=== PATIENT | male | born 1990 | race Caucasian/White ===

== ENCOUNTER 2021-06-29 19:19 | Emergency (ER) | payer SELFPAY ==
--- OUTSIDE RECORDS SUMMARY | 2021-06-29 19:22 | XMS REPORT | Continuity of Care Document ---
:1990 Author Organization [facility] t Address [address] [place] [address] Care Team Providers Name Role Phone Nguyen_Tho Attending Clinician Unavailable AMBREEN_FARHANA Attending Clinician Unavailable cain_jo Attending Clinician Unavailable Nguyen_Tho Admitting Clinician Unavailable AMBREEN_FARHANA Admitting Clinician Unavailable cain_jo Admitting Clinician Unavailable Payers Payer Name Policy Type Policy Number Effective Date Expiration Date Dany ESPINOZA [facility] [id number] [facility] Problems Condition Condition Condition Status Onset Resolution Last Treating Co mments Source Name Details Category Date Date Treatment Clinician Date Recurrent Recurrent Problem Active [place] major 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-12 da depression Depression 00:00: [facility] 00 al [facility] Generalize Generalize Problem Active [place] d anxiety d Anxiety 12-12 da disorder Disorder 00:00: Ep[facility] p 00 al [facility] Attention Attention Problem Active [place] deficit 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 Hyperactiv 00:00: Ep [facility] ity ity 00 al disorder Disorder Health Outreac h Program Smoker Smoker Problem Active [place] [facility] Upper Upper Problem Active [place] respirator Respirator da y y [facility] infection Infection al [facility] Acute Acute Problem Active [place] bronchitis Bronchitis da [facility] Bronchitis Bronchitis Problem Active [facility] [place] [facility] Toothache Toothache Problem Active [place] [facility] Folliculit Folliculit Problem Active M [facility] is is da [facility] Malaise Malaise Problem Active [place] [facility] Swollen Swollen Problem Active [place] gums Gums da [facility] Dyspnea Dyspnea Problem Active [place] [facility] Cough Cough Problem Active [place] [facility] Chest wall Chest Wall Problem Active M [facility] pain Pain [facility] Sprain of Sprain of Problem Active [place] ankle Ankle [facility] Knee pain Knee Pain Problem Active [place] [facility] On On Problem Active [place] examinatio Examinatio da n - dental n - Dental [facility] caries Caries al Health Outreac h Program Allergies, Adverse Reactions, Alerts This patient has no known allergies or adverse reactions. Social History Smoking Status Start Date Stop Date Source Former Smoker [place] [facility] Medications Ordered Filled Start Stop Current Ordering Indication Dosage Frequency Signature Comments Components Source Medication Medication Date Date Medication? Clinician (SIG) Name Name albuterol albuterol No 2puff(s Q4H albuterol [place] sulfate HFA sulfate HFA ) sulfate da 90 90 HFA 90 [facility] mcg/actuati mcg/actuati mcg/actuat al on aerosol on aerosol ion Hea lth inhaler inhaler aerosol Outrea c Inhale 2 Inhale 2 inhaler h puffs every puffs every Inhale 2 Program 4 hours by 4 hours by puffs inhalation inhalation every 4 route as route as hours by needed. needed. inhalation route as needed. clonazepam clonazepam No clonazepam [place] 1 mg tablet 1 mg tablet 1 mg d a TAKE 1 TAKE 1 tablet [facility] TABLET BY TABLET BY TAKE 1 al MOUTH TWICE MOUTH TWICE TABLET BY [facility] DAILY DAILY MOUTH Outrea c NEEDED NEEDED TWICE h DAILY Program NEEDED ipratropium ipratropium No ipratropiu [place] 0.5 0.5 m 0.5 da mg-albutero mg-albutero mg-albuter [facility] l 3 mg (2.5 l 3 mg (2.5 ol 3 mg al mg base)/3 mg base)/3 (2.5 mg Health mL mL base)/3 mL Outreac nebulizatio nebulizatio nebulizati h n soln Take n soln Take on soln Program 3 mL by 3 mL by Take 3 mL inhalation inhalation by with with inhalation NEBulizer NEBulizer with every 20 every 20 NEBulizer minutes up minutes up every 20 to three to three minutes up times. times. to three times. sertraline sertraline No sertraline [place] 50 mg 50 mg 50 mg da tablet tablet tablet [facility] Immunizations Ordered Immunization Filled Immunization Date Status Commen ts Source Name Name Tdap Tdap 2017-03-21 Completed [place] 00:00:00 [facility] Vital Signs Vital Name Observation Time Observation Value Comments Source BP Diastolic 2021-06-09 00:00:00 76 mm[Hg] Riaz kofi [facility] Height 2021-06-09 00:00:00 72 [in_i] [facility] BMI (Body Mass 2021-06-09 00:00:00 27 kg/m2 [place]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) [facility] Outreach Program BP Systolic 2021-06-09 00:00:00 118 mm[Hg] Riazrd a [facility] Body Weight 2021-06-09 00:00:00 3184 [oz_av] Riazrd a [facility] BP Diastolic 2021-04-28 00:00:00 78 mm[Hg] Riazrd a [facility] Height 2021-04-28 00:00:00 72 [in_i] Riazrd a [facility] BMI (Body Mass 2021-04-28 00:00:00 26.6 kg/m2 [place]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) [facility] BP Systolic 2021-04-28 00:00:00 120 mm[Hg] Riazrd a [facility] Body Weight 2021-04-28 00:00:00 3136 [oz_av] Riazrd a [facility] BP Diastolic 2020-11-07 00:00:00 84 mm[Hg] Riazrd a [facility] Height 2020-11-07 00:00:00 72 [in_i] Riazrd a [facility] BMI (Body Mass 2020-11-07 00:00:00 26.4 kg/m2 [place]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) [facility] BP Systolic 2020-11-07 00:00:00 128 mm[Hg] Riazrd a [facility] Body Weight 2020-11-07 00:00:00 3120 [oz_av] Riazrd a [facility] BP Diastolic 2020-10-06 00:00:00 74 mm[Hg] Riazrd a [facility] Height 2020-10-06 00:00:00 72 [in_i] Riazrd a [facility] BMI (Body Mass 2020-10-06 00:00:00 26.3 kg/m2 [place]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 BP Systolic 2020-10-06 00:00:00 113 mm[Hg] Riazrd a [facility] Body Weight 2020-10-06 00:00:00 3104 [oz_av] Riazrd a [facility] BP Diastolic 2020-08-25 00:00:00 82 mm[Hg] [place] [facility] Height 2020-08-25 00:00:00 72 [in_i] [place] [facility] BMI (Body Mass 2020-08-25 00:00:00 25.5 kg/m2 [place]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) [facility] BP Systolic 2020-08-25 00:00:00 122 mm[Hg] Riazrd a [facility] Body Weight 2020-08-25 00:00:00 3008 [oz_av] Riazrd a [facility] Height 2020-08-15 00:00:00 72 [in_i] Luis Fagord a [facility] BP Systolic 2020-08-15 00:00:00 126 mm[Hg] [place] [facility] BP Diastolic 2020-08-15 00:00:00 72 mm[Hg] [place] [facility] BP Diastolic 2019-11-30 00:00:00 93 mm[Hg] Riazrd a [facility] Height 2019-11-30 00:00:00 72 [in_i] Riazrd a [facility] BMI (Body Mass 2019-11-30 00:00:00 26.3 kg/m2 [place]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) [facility] BP Systolic 2019-11-30 00:00:00 125 mm[Hg] Luis Fagord a [facility] Body Weight 2019-11-30 00:00:00 3097.6 [oz_av] [place]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[facility] BP Diastolic 2019-11-02 00:00:00 78 mm[Hg] Riazrd a [facility] Height 2019-11-02 00:00:00 72 [in_i] Luis Fagord a [facility] BMI (Body Mass 2019-11-02 00:00:00 25.2 kg/m2 [place]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) [facility] Outreach Program BP Systolic 2019-11-02 00:00:00 129 mm[Hg] [place] [facility] Body Weight 2019-11-02 00:00:00 2976 [oz_av] Luis Fagord a [facility] BP Diastolic 2019-09-28 00:00:00 74 mm[Hg] [place] [facility] Height 2019-09-28 00:00:00 72 [in_i] [place] [facility] BMI (Body Mass 2019-09-28 00:00:00 24.3 kg/m2 [place]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) [facility] Outreach Program BP Systolic 2019-09-28 00:00:00 120 mm[Hg] Luis Fagord a [facility] Body Weight 2019-09-28 00:00:00 2870.4 [oz_av] Luis Fago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[facility] Procedures Procedure Date / Time Performed Performing Clinician Sour e ELECTROCARDIOGRAM, 2021-06-09 00:00:00 Chika [facility] COMPLETE [facility] Out[facility] CHEST X-RAY 2021-04-28 00:00:00 Chika [facility] XR, ankle, 3 or more 2019-11-02 00:00:00 Shana sloan [facility] Plan of Care Planned Activity Planned Date Details Comments Source Diagnostic Test 2021-06-09 CBC w/ auto diff [code [place] Pending 00:00:00 = CBC w/ auto diff] [facility] Diagnostic Test 2021-06-09 CMP, serum or plasma [place] corin Pending 00:00:00 [code = CMP, serum or [facility] plasma] Outreach Progra m Diagnostic Test 2021-06-09 magnesium, serum or [place] Pending 00:00:00 plasma [code = [facility] magnesium, serum or Outreach Program plasma] Diagnostic Test 2021-06-09 CRP, high sensitivity, [place] Pending 00:00:00 serum or plasma [code [facility] = CRP, high Outreach Progra m sensitivity, serum or plasma] Diagnostic Test 2021-06-09 ESR (erythrocyte [place] Pending 00:00:00 sedimentation rate), [facility] blood [code = ESR Outreach P rogram (erythrocyte sedimentation rate), blood] Diagnostic Test 2021-06-09 lipid panel, serum [place]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Pending 00:00:00 [code = lipid panel, [facility] serum] Outreach Progra m Diagnostic Test 2021-06-09 amylase + lipase, [place] Pending 00:00:00 serum [code = amylase [facility] + lipase, serum] Outreach Pr ogram Future Appointment 2021-07-22 Thchrissy Louie [address] , [place] [address] Outreach Program Future Appointment 2021-07-13 Artem Winter, [address] [place] 13:00:00 [place]; , [facility] [address] Outreach Progra m Encounters Start End Encounter Admission Attending Care Care Encounter Source Date/Time Date/Time Type Type Clinicians Facility Department ID 2021-06-09 2021-06-09 Outpatient Nguyen_Tho [facility] [id number] [place] 05:40:00 05:40:00 0322 [facility] 2021-06-09 2021-06-09 [facility] [id number] [place] 00:00:00 00:00:00 Chika Louie da DEPOSIT REFUND CLERK-TECHNICAL PRODUCER-C: [facility] [address] [facility] [address], [facility] [address] Wiley garcia , Ph. 2021-06-08 2021-06-08 Outpatient Nguyen_o [facility] [id number] [place] 03:57:00 03:57:00 0321 [facility] 2021-05-28 2021-05-28 Outpatient Nguyen_Tho [facility] [id number] [place] 04:06:00 04:06:00 0310 [facility] 2021-05-13 2021-05-13 Outpatient Nguyen_Tho [facility] [id number] [place] 10:07:00 10:07:00 0223 [facility] 2021-04-28 2021-04-28 Outpatient Nguyen_o [facility] [id number] [place] 05:34:00 05:34:00 0208 [facility] 2021-04-28 2021-04-28 o [facility] [place] - [id number] [place] 00:00:00 00:00:00 Chika Louie da DEPOSIT REFUND CLERK-TECHNICAL PRODUCER-C: [facility] [address] HOP - [facility] [phone] [facility] , Ph. 2021-04-27 2021-04-27 Outpatient Nguyen_Tho [facility] [id number] [place] 04:36:00 04:36:00 0207 [facility] 2020-12-04 2020-12-04 Outpatient Nguyen_Tho [facility] [id number] [place] 02:08:00 02:08:00 0916 [facility] 2020-11-07 2020-11-07 Outpatient Nguyen_Tho [facility] [id number] [place] 11:45:00 11:45:00 0820 [facility] 2020-11-07 2020-11-07 o [facility] [place] - [id number] [place]or 00:00:00 00:00:00 Chika Louie da DEPOSIT REFUND CLERK-TECHNICAL PRODUCER-C: [facility] [address] - [facility] [phone] Wiley , Ph. 2020-11-06 2020-11-06 Outpatient Nguyen_Tho [facility] [id number] [place] 01:14:00 01:14:00 0819 [facility] 2020-10-30 2020-10-30 Outpatient Nguyen_Tho [facility] [id number] [place] 01:21:00 01:21:00 0812 [facility] 2020-10-07 2020-10-07 Outpatient Nguyen_Tho [facility] [id number] [place] 09:37:00 09:37:00 0720 [facility] 2020-10-06 2020-10-06 Outpatient NgalinenVannessa [facility] [id number] [place] 05:45:00 05:45:00 0719 [facility] 2020-10-06 2020-10-06 o [facility] [place] - [id number] M at[place] 00:00:00 00:00:00 Chika Louie da DEPOSIT REFUND CLERK-TECHNICAL PRODUCER-C: [facility] [address] - [facility] [address] Wiley garcia , Ph. 2020-09-25 2020-09-25 Outpatient NgGaye [facility] [id number] [place] 01:45:00 01:45:00 0708 [facility] 2020-08-27 2020-08-27 Outpatient Nguyen_Duncano [facility] [id number] [place] 09:58:00 09:58:00 0609 [facility] 2020-08-25 2020-08-25 Outpatient Nguyen_Shaun [facility] [id number] [place] 05:35:00 05:35:00 0607 [facility] 2020-08-25 2020-08-25 [facility] [place] - [id number] M at[place]or 00:00:00 00:00:00 Chika Louie da DEPOSIT REFUND CLERK-TECHNICAL PRODUCER-C: [facility] [address] [facility] [address] Wiley garcia , Ph. 2020-08-22 2020-08-22 Outpatient Nguyen_Duncano [facility] [id number] [place] 01:02:00 01:02:00 0604 [facility] 2020-08-19 2020-08-19 Outpatient Florenceen_Shaun [facility] [id number] [place] 09:18:00 09:18:00 0601 [facility] 2020-08-15 2020-08-15 Outpatient Jacy_Shaun [facility] [id number] [place] 04:28:00 04:28:00 0528 [facility] 2020-08-15 2020-08-15 [facility] [place] - [id number] atagor 00:00:00 00:00:00 Chika Louie da DEPOSIT REFUND CLERK-TECHNICAL PRODUCER-C: [facility] [address] [facility] [address] Wiley am , Ph. 2020-08-13 2020-08-13 Outpatient Jacy_Shaun [facility] [id number] [place] 09:57:00 09:57:00 0526 [facility] 2020-08-07 2020-08-07 Outpatient AMBREEN_FAR [facility] 834 [place] 02:29:00 02:29:00 HANA 0520 [facility] 2020-08-07 2020-08-07 [facility] [place] - [id number] [place]agor 00:00:00 00:00:00 Chika Louie da DEPOSIT REFUND CLERK-TECHNICAL PRODUCER-C: [facility] [address] [facility] [address] Progr am , Ph. 2020-07-14 2020-07-14 Outpatient AMBREEN_FAR [facility] [id number] [place] 01:03:00 01:03:00 HANA 0426 [facility] 2020-06-09 2020-06-09 Outpatient AMBREEN_FAR [facility] 834 [place] 01:01:00 01:01:00 HANA 0322 [facility] 2020-05-05 2020-05-05 Outpatient AMBREEN_FAR [facility] 834 [place] 01:02:00 01:02:00 HANA 0215 [facility] 2020-04-28 2020-04-28 Outpatient AMBREEN_FAR [facility] 834 [place] 03:53:00 03:53:00 HANA 0208 [facility] 2020-04-25 2020-04-25 Outpatient AMBREEN_FAR [facility] 834 [place] 03:44:00 03:44:00 HANA 0205 [facility] 2020-03-31 2020-03-31 Outpatient AMBREEN_FAR [facility] 834 [place] 01:04:00 01:04:00 HANA 0111 [facility] 2020-02-25 2020-02-25 Outpatient AMBREEN_FAR [facility] 834 [place] 01:03:00 01:03:00 HANA 1207 [facility] 2020-02-18 2020-02-18 Outpatient AMBREEN_FAR [facility] 834 [place] 11:22:00 11:22:00 HANA 1130 [facility] 2020-02-18 2020-02-18 [facility] [place] - [id number] M at[place] 00:00:00 00:00:00 Matt Weir MD: [facility] [address] [facility] B.[facility] [address] [facility] jose , Ph. [phone] 2020-02-06 Outpatient katy_matt [facility] [id number] [place] 02:32:00 02:32:00 1118 [facility] 2020-01-19 2020-01-19 Outpatient AMBREEN_FAR [facility] 834 [place] 01:03:00 01:03:00 HANA 1031 [facility] 2020-01-18 2020-01-18 Outpatient AMBREEN_FAR [facility] 834 [place] 03:44:00 03:44:00 HANA 1030 [facility] 2019-12-19 2019-12-19 Outpatient AMBREEN_FAR [facility] 834 [place] 03:16:00 03:16:00 HANA 0930 [facility] 2019-12-19 2019-12-19 Artem Conley [place] - [id number] M [place] 00:00:00 00:00:00 Chika Soni da PSYD: 1700 [facility] [address] [facility] [id number] h , Ph. Program [phone] --[phone] 2019-12-14 Outpatient AMBREEN_FAR [facility] 834 [place] 11:02:00 11:02:00 HANA 0925 [facility] 2019-12-13 2019-12-13 Outpatient AMBREEN_FAR [facility] 834 [place] 04:22:00 04:22:00 HANA 0924 [facility] 2019-12-13 2019-12-13 Artem Conley [place] - [id number] M [place] 00:00:00 00:00:00 Chika Soni PSYD: 1700 [facility] [address] h , Ph. Program ([phone]) --[phone] 2019-11-30 Outpatient AMBREEN_FAR [facility] 834 [place] 04:09:00 04:09:00 HANA 0911 [facility] 2019-11-30 2019-11-30 Latrice ROQUE [place] - [id number] M at[place] 00:00:00 00:00:00 Isabel Escudero, [facility] TECHNICAL PRODUCER: [address] [facility] [address] Progr am , Ph. 2019-11-02 2019-11-02 Outpatient AMBREEN_FAR [facility]HOP [facility] 834 [place] 02:40:00 02:40:00 HANA 0814 [facility] 2019-11-02 2019-11-02 Latrice ROQUE [place] - [id number] M [place] 00:00:00 00:00:00 Isabel Escudero, [facility] TECHNICAL PRODUCER: [address] [facility] [address] Progr am , Ph. 2019-10-31 2019-10-31 Outpatient AMBREEN_FAR [facility] 834 [place] 10:29:00 10:29:00 HANA 0812 [facility] 2019-10-09 2019-10-09 Outpatient AMBREEN_FAR [facility] 834 [place] 01:45:00 01:45:00 HANA 0721 [facility] 2019-10-04 2019-10-04 Outpatient AMBREEN_FAR [facility] 834 [place] 01:13:00 01:13:00 HANA 0716 [facility] 2019-09-28 2019-09-28 Outpatient AMBREEN_FAR [facility] 834 [place] 09:09:00 09:09:00 HANA 0710 [facility] 2019-09-28 2019-09-28 Latrice ROQUE [place] - [id number] M at[place] 00:00:00 00:00:00 Isabel Escudero, [facility] TECHNICAL PRODUCER: [address] [facility] [address] Progr am , Ph. 2019-09-26 2019-09-26 Outpatient AMBREEN_FAR [facility] 834 [place] 06:37:00 06:37:00 NICOLÁS 0708 [facility] Outreac h Program 2019-08-30 2019-08-30 Outpatient AMBREEN_[facility] 834 [place] 03:40:00 03:40:00 GODWINA 0611 [facility] Outreac h Program Results Test Description Test Time Test Comments Results Result Comments Source influenza virus A + B and SARS CoV 2 (COVID-19) and RSV RNA 2020-11-07 14:36:00 panel, NESS+probe, respiratory specimen Test Item Value Reference Range Interpretation Comme nts Sars Cov 2 (test code = Sars Cov 2) negative [facility] [Mass/volume] - Serum or [id number] 00:00:00 Test Item Value Reference Range Interpretation Comments Testosterone [Mass/volume] in 674 NG/dL [id number] Serum or Plasma (test code = 2986-8) Testosterone Free [Mass/volume] in 17.3 pg/mL 8.7-25.1 Serum or Plasma (test code = 2991-8) [facility]
--- NOTE | 2021-06-29 20:44 | ER ---
Nurse's Notes [facility] Name: Ham Chavez Age: 30 yrs Sex: Male : 1990 Arrival Date: 06/29/2021 Time: 19:48 Bed Waiting Private MD: Diagnosis: ED Course: 06/29 19:48 Patient arrived in ED. ag3 Administered Medications: No medications were administered Outcome: 20:43 Patient left the ED. ll3 Signatures: Mechelle Nunez3 Liya Oneill, RN RN 3
== END 2021-06-29 20:43 | disposition left against medical advice (07) ==
LOC: ER 19:19
DX: Z02.9 Encounter for administrative examinations, unspecified (principal)

== ENCOUNTER 2022-03-10 13:08 | Emergency (ER) | payer SELFPAY ==
--- OUTSIDE RECORDS SUMMARY | 2022-03-10 13:12 | XMS REPORT | Continuity of Care Document ---
:1990 Author Organization [facility] t Address [address] [place] [address] Care Team Providers Name Role Phone Nguyen_Tho Attending Clinician Unavailable AMBREEN_FARHANA Attending Clinician Unavailable [email or web address] Attending Clinician Unavailable Nguyen_Tho Admitting Clinician Unavailable AMBREEN_FARHANA Admitting Clinician Unavailable [email or web address] Admitting Clinician Unavailable Payers Payer Name Policy Type Policy Number Effective Date Expiration Date Dany STRINGER [id number] INCRenny Problems Condition Condition Condition Status Onset Resolution [...] Start Date Stop Date Source Former Smoker [place] [facility] Medications Ordered [...] al MOUTH TWICE MOUTH TWICE TABLET BY Health DAILY DAILY MOUTH Outrea c NEEDED NEEDED [...] Source Name Name Tdap Tdap 2017-03-21 Completed [place] 00:00:00 [facility] Outreach Progr am Vital Signs Vital Name Observation Time Observation Value Comments Source BP Diastolic 2021-06-09 00:00:00 76 mm[Hg] [facility] Height 2021-06-09 00:00:00 72 [in_i] [facility] BMI (Body Mass 2021-06-09 00:00:00 27 kg/m2 [place] [facility] Index) [facility] Out[facility] BP Systolic 2021-06-09 00:00:00 118 mm[Hg] [place] [facility] Body Weight 2021-06-09 00:00:00 3184 [oz_av] [place] [facility] BP Diastolic 2021-04-28 00:00:00 78 mm[Hg] [place] [facility] Height 2021-04-28 00:00:00 72 [in_i] [facility] [place] [facility] BMI (Body Mass 2021-04-28 00:00:00 26.6 kg/m2 [place] [facility] Index[facility] BP Systolic 2021-04-28 00:00:00 120 mm[Hg] [facility] [place] [facility] Body Weight 2021-04-28 00:00:00 3136 [oz_av] [facility] [place] [facility] BP Diastolic 2020-11-07 00:00:00 84 mm[Hg] [place] [facility] Height 2020-11-07 00:00:00 72 [in_i] [facility] [place] [facility] BMI (Body Mass 2020-11-07 00:00:00 26.4 kg/m2 [place] [facility] Index[facility] BP Systolic 2020-11-07 00:00:00 128 mm[Hg] [facility] [place] [facility] Body Weight 2020-11-07 00:00:00 3120 [oz_av] [place] [facility] BP Diastolic 2020-10-06 00:00:00 74 mm[Hg] [place] [facility] Height 2020-10-06 00:00:00 72 [in_i] [place] [facility] BMI (Body Mass 2020-10-06 00:00:00 26.3 kg/m2 [place] [facility] Index[facility] BP Systolic 2020-10-06 00:00:00 113 mm[Hg] [place] [facility] Body Weight 2020-10-06 00:00:00 3104 [oz_av] [place] [facility] BP Diastolic 2020-08-25 00:00:00 82 mm[Hg] [place] [facility] Height 2020-08-25 00:00:00 72 [in_i] [place] [facility] BMI (Body Mass 2020-08-25 00:00:00 25.5 kg/m2 [place] [facility] Index[facility] BP Systolic 2020-08-25 00:00:00 122 mm[Hg] [place] [facility] Body Weight 2020-08-25 00:00:00 3008 [oz_av] [facility] [place] [facility] Height 2020-08-15 00:00:00 72 [in_i] [place] [facility] BP Systolic 2020-08-15 00:00:00 126 mm[Hg] [place] [facility] BP Diastolic 2020-08-15 00:00:00 72 mm[Hg] [place] [facility] BP Diastolic 2019-11-30 00:00:00 93 mm[Hg] [place] [facility] Height 2019-11-30 00:00:00 72 [in_i] [place] [facility] BMI (Body Mass 2019-11-30 00:00:00 26.3 kg/m2 [place] [facility] Index) [facility] BP Systolic 2019-11-30 00:00:00 125 mm[Hg] [place] [facility] Body Weight 2019-11-30 00:00:00 3097.6 [oz_av] [place] [facility] BP Diastolic 2019-11-02 00:00:00 78 mm[Hg] [place] [facility] Height 2019-11-02 00:00:00 72 [in_i] [place] [facility] BMI (Body Mass 2019-11-02 00:00:00 25.2 kg/m2 [place] [facility] Index) [facility] BP Systolic 2019-11-02 00:00:00 129 mm[Hg] [place] [facility] Body Weight 2019-11-02 00:00:00 2976 [oz_av] [facility] BP Diastolic 2019-09-28 00:00:00 74 [facility]Hg[facility] Height 2019-09-28 00:00:00 72 [in_i] [facility] BMI (Body Mass 2019-09-28 00:00:00 24.3 kg/m2 [place] [facility] Index) [facility] Outreach [facility] BP Systolic 2019-09-28 00:00:00 120 mm[Hg] [facility] Body Weight 2019-09-28 00:00:00 2870.4 [oz_av] [facility] Procedures Procedure Date / Time Performed Performing Clinician Sour e ELECTROCARDIOGRAM, 2021-06-09 00:00:00 Chika [facility] COMPLETE [facility] Outreach Program CHEST X-RAY 2021-04-28 00:00:00 [facility]ika [facility] XR, ankle, 3 or more 2019-11-02 00:00:00 Shana sloan [facility] Plan of Care Planned Activity Planned Date Details Comments Source Diagnostic Test 2021-06-09 CBC w/ auto diff [code [place] Pending 00:00:00 = CBC w/ auto diff] [facility] Diagnostic Test 2021-06-09 CMP, serum or plasma [place] corin Pending 00:00:00 [code = CMP, serum or [facility] plasma] Outreach Progra m Diagnostic Test 2021-06-09 magnesium, serum or [place] Pending 00:00:00 plasma [code = [facility] magnesium, serum or Outreach Program plasma] Diagnostic Test 2021-06-09 CRP, high sensitivity, [place] Pending 00:00:00 serum or plasma [code [facility] = CRP, high Outreach Progra m sensitivity, serum or plasma] Diagnostic Test 2021-06-09 ESR (erythrocyte [place] Pending 00:00:00 sedimentation rate), [facility] blood [code = ESR Outreach P rogram (erythrocyte sedimentation rate), blood] Diagnostic Test 2021-06-09 lipid panel, serum [place] Pending 00:00:00 [code = lipid panel, [facility] serum] Outreach Progra m Diagnostic Test 2021-06-09 amylase + lipase, [place] Pending 00:00:00 serum [code = amylase [facility] + lipase, serum] Outreach Pr ogram Encounters Start End Encounter Admission Attending Care Care Encounter Source Date/Time Date/Time Type Type Clinicians Facility Department ID 2021-06-09 2021-06-09 [place] - [id number] [place] 00:00:00 00:00:00 Chika Louie 0322 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 [address] Wiley garcia , Ph. 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 [address] Wiley garcia , Ph. 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 [id number] Wiley garcia , Ph. 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 [phone] [facility] , Ph. 2020-08-22 2020-08-22 Outpatient Nguyen_Shaun ME[facility]OP [facility] [id number] [place] 01:02:00 01:02:00 0604 [facility] 2020-08-19 2020-08-19 Outpatient Nguyen_Shaun [facility] [id number] [place] 09:18:00 09:18:00 0601 [facility] 2020-08-15 2020-08-15 [place] [facility] [place] - [id number] 021 [place] 00:00:00 00:00:00 Chika Louie 0528 da SOLID WASTE ENGINEER-SUPERCALENDER OPERATOR HELPER-C: [facility] Epi scop 17[address] H[address] - [facility] [id number] [facility] , Ph. 2020-08-13 2020-08-13 Outpatient Nguyen_Shaun [facility] [id number] [place] 09:57:00 09:57:00 0526 [facility] 2020-08-07 2020-08-07 Tho [facility] [place] - [id number] [place] 00:00:00 00:00:00 NICOLÁS [place] 0520 da SOLID WASTE ENGINEER-SUPERCALENDER OPERATOR HELPER-C: [facility] Epi scop 1700 HOP - MEHOP al [facility] [id number] Wiley garcia , Ph. 2020-07-14 2020-07-14 Outpatient AMBREEN_FAR MEHOP ME[facility]OP [id number] [place] 01:03:00 01:03:00 HANA 0426 da [facility] 2020-06-09 2020-06-09 Outpatient AMBREEN_FAR MEHOP ME[facility]OP [id number] [place] 01:01:00 01:01:00 HANA 0322 da [facility] 2020-05-05 2020-05-05 Outpatient AMBREEN_FAR MEHOP ME[facility]OP [id number] [place] 01:02:00 01:02:00 HANA 0215 [facility] 2020-04-28 2020-04-28 Outpatient AMBREEN_FAR MEHOP [facility]OP [id number] [place] 03:53:00 03:53:00 HANA 0208 da [facility] 2020-04-25 2020-04-25 Outpatient AMBREEN_FAR MEHOP [facility]OP [id number] [place] 03:44:00 03:44:00 HANA 0205 da [facility] 2020-03-31 2020-03-31 Outpatient AMBREEN_FAR MEHOP [facility]OP [id number] [place] 01:04:00 01:04:00 HANA 0111 [facility] 2020-02-25 2020-02-25 Outpatient AMBREEN_FAR ME[facility]OP [facility] [id number] [place] 01:03:00 01:03:00 HANA 1207 da [facility] 2020-02-18 2020-02-18 Oswaldo AMBREEN_FAR [place] - [id number] [place] 00:00:00 00:00:00 Matt Farr 1130 edouard Weir MD: [facility] Epi scop 1700 HOP - [facility] [address] Wiley garcia , Ph. [phone] 2020-02-06 Outpatient caimarcel_matt [facility] [id number] [place] 02:32:00 02:32:00 1118 da [facility] 2020-01-19 2020-01-19 Outpatient AMBREEN_FAR MEHOP [facility]HOP [id number] [place] 01:03:00 01:03:00 HANA 1031 da [facility] 2020-01-18 2020-01-18 Outpatient AMBREEN_FAR MEHOP [facility] [id number] [place] 03:44:00 03:44:00 HANA 1030 da [facility] 2019-12-19 2019-12-19 Artem Jarvis AMBREEN_FAR [place] - [id number] [place] 00:00:00 00:00:00 NICOLÁS Soni [place] 0930 da PSYD: 1700 [facility] Epi scop Fritz HOP - [address], [facility] [address] h , Ph. Program ([phone]) --20072019-12-14 2019-12-14 Outpatient AMBREEN_FAR MEHOP MEHOP [id number] [place] 11:02:00 11:02:00 HANKofi 0925 da [facility] 2019-12-13 2019-12-13 Artem Conley AMBREEN_FAR [place] - [id number] [place] 00:00:00 00:00:00 NICOLÁS Soni [place] 0924 da PSYD: 1700 [facility] Epi scop Fritz HOP - [address], [facility] [address] h , Ph. Program ([phone]) --20072019-11-30 2019-11-30 Latrice AMBREEN_FAR [place] - [id number] [place] 00:00:00 00:00:00 Isabel MONZON [place] 0911 da Gerard, [facility] SUPERCALENDER OPERATOR HELPER: 1700 HOP - MEHOP al [facility] [address] [facility] , Ph. 2019-11-02 2019-11-02 [facility] [place] [facility] [id number] [place] 00:00:00 00:00:00 Cru[place]ofi [place] 0814 [place] [facility] SUPERCALENDER OPERATOR HELPER: 1700 [facility] [id number] [facility] , Ph. 2019-10-31 2019-10-31 Outpatient AMBREEN_FAR MEHOP [facility] [id number] [place] 10:29:00 10:29:00 HANA 0812 da [facility] 2019-10-09 2019-10-09 Outpatient AMBREEN_FAR MEHOP [facility] [id number] [place] 01:45:00 01:45:00 HANA 0721 da [facility] 2019-10-04 2019-10-04 Outpatient AMBREEN_FAR [facility] 83 [place] 01:13:00 01:13:00 HANA 0716 da [facility] 2019-09-28 2019-09-28 Latrice AM[facility]_FAR [facility] [place] - [id number] [place] 00:00:00 00:00:00 Cruztuckerkofi MONZON [place] 0710 [place] [facility] SUPERCALENDER OPERATOR HELPER: 1700 [facility] [id number] [facility] , Ph. 2019-09-26 2019-09-26 Outpatient AMBREEN_FAR [facility] 83 [place] 06:37:00 06:37:00 HANA 0708 da [facility] 2019-08-30 2019-08-30 Outpatient AMBREEN_FAR MEHOP [facility] [id number] [place] 03:40:00 03:40:00 HANA 0611 da [facility] Outreac [facility] Program Results Test Description Test Time Test Comments Results Result Comments Source influenza virus A + B and SARS CoV 2 (COVID-19) and RSV RNA 2020-11-07 14:36:00 panel, NESS+probe, respiratory specimen Test Item Value Reference Range Interpretation Comme nts Sars Cov 2 (test code = Sars Cov 2) [facility] [Mass/volume] - Serum or [id number] 00:00:00 Test Item Value Reference Range Interpretation Comments Testosterone [Mass/volume] in 674 NG/dL [id number] Serum or Plasma (test code = 2986-8) Testosterone Free [Mass/volume] in 17.3 pg/mL 8.7-25.1 Serum or Plasma (test code = 2991-8) [facility]
[2022-03-10] MEDS ORDERED: LIDOCAINE 1% MPF 5 ML VIAL ONE (13:56)
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
[2022-03-10 14:55] VITALS: TEMP 97.9; O2SAT 100
[2022-03-10 14:56] VITALS: BP 129/90
== END 2022-03-10 14:45 | disposition home or self-care (01) ==
LOC: ER 13:08
PROC: 0JQ10ZZ Repair Face Subcutaneous Tissue and Fascia, Open Approach (ICD-10-PCS; principal; 2022-03-10)
DX: S01.81XA Laceration without foreign body of other part of head, initial encounter (principal); Y04.8XXA Assault by other bodily force, initial encounter
CPT/HCPCS: 70450; J2001

== ENCOUNTER 2022-05-23 19:28 | Emergency (ER) | payer OTHER, SELFPAY ==
--- OUTSIDE RECORDS SUMMARY | 2022-05-23 19:31 | XMS REPORT | Continuity of Care Document ---
:1990 Author Organization [facility] t Address [address] [facility] [address] [place] [address] Support Name Relationship Address Phone PHYSICIAN, NO Primary Care Physician Unavailable Unavailab MD NEO Piper MD A Emergency Provider [address] [phone] [place] [address] KRISTI WINTER Next of Kin [address] [place] [address] MD KATYA MEJIA MD Emergency Provider [address] [place] [address] JAE AMADOR, MARISABEL Emergency Provider [address] [facility] [phone] [place] [address] DIANA EASTMAN MD Emergency Provider [address] [facility] [phone] [place] [address] MD CALISTA Emergency Provider [address] [place] [address] MD JOSE ALEJANDRO BRENNAN Emergency Provider [address] [phone] [place] [address] OTHER, ENTER NAME IN Primary Care Physician Unavailable Unav ailable NOTES DO AGUSTIN RUVALCABA Emergency Provider [address] [email or web address] [address] MD OLAF BEARD Emergency Provider [email or web address] [address] MD ELMA MATTHEWS Emergency Provider [address] [place] [address] Care Team Providers Name Role Phone SOLANGE VENTURA Attending Clinician Unavailable Jem Attending Clinician Unavailable NORMA Attending Clinician Unavailable carisa Attending Clinician Unavailable Jem Admitting Clinician Unavailable NORMA Admitting Clinician Unavailable carisa Admitting Clinician Unavailable Payers Payer Name Policy Type Policy Number Effective Date Expiration Date Dany CANTRELL MP BRONZE: 9 [id number] 2022 [facility] ON 00:00:00 [id number] Problems Condition Condition Condition Status Onset Resolution [...] Start Date Stop Date Source Former Smoker [place] [facility] Outreach Program Medications Ordered Filled Start [...] Source Name Name Tdap Tdap 2017-03-21 Completed [place] 00:00:00 [facility] am Vital Signs Vital Name Observation Time Observation Value Comments Source BP Diastolic 2021-06-09 00:00:00 76 mm[Hg] [place] [facility] Height 2021-06-09 00:00:00 72 [in_i] [place] [facility] BMI (Body Mass 2021-06-09 00:00:00 27 kg/m2 [place] [facility] Index) [facility] Outreach Program BP Systolic 2021-06-09 00:00:00 118 mm[Hg] [place] [facility] Body Weight 2021-06-09 00:00:00 3184 [oz_av] [place] [facility] BP Diastolic 2021-04-28 00:00:00 78 mm[Hg] [place] [facility] Height 2021-04-28 00:00:00 72 [in_i] [place] [facility] BMI (Body Mass 2021-04-28 00:00:00 26.6 kg/m2 [place] [facility] Index[facility] Out[facility] BP Systolic 2021-04-28 00:00:00 120 mm[Hg] [place] [facility] Body Weight 2021-04-28 00:00:00 3136 [oz_av] [place] [facility] BP Diastolic 2020-11-07 00:00:00 84 mm[Hg] [place] [facility] Height 2020-11-07 00:00:00 72 [in_i] [place] [facility] BMI (Body Mass 2020-11-07 00:00:00 26.4 kg/m2 [place] [facility] Index[facility] BP Systolic 2020-11-07 00:00:00 128 mm[Hg] [place] [facility] Body Weight 2020-11-07 00:00:00 3120 [oz_av] [place] [facility] BP Diastolic 2020-10-06 00:00:00 74 mm[Hg] [place] [facility] Height 2020-10-06 00:00:00 72 [in_i] [place] [facility] BMI (Body Mass 2020-10-06 00:00:00 26.3 kg/m2 [place] [facility] Index[facility] BP Systolic 2020-10-06 00:00:00 113 mm[Hg] [place] [facility] Body Weight 2020-10-06 00:00:00 3104 [oz_av] [place] [facility] BP Diastolic 2020-08-25 00:00:00 82 mm[Hg] [place] [facility] Height 2020-08-25 00:00:00 72 [in_i] [place] [facility] BMI (Body Mass 2020-08-25 00:00:00 25.5 kg/m2 [place] [facility] Index) [facility] BP Systolic 2020-08-25 00:00:00 122 mm[Hg] [place] [facility] Body Weight 2020-08-25 00:00:00 3008 [oz_av] [place] [facility] Height 2020-08-15 00:00:00 72 [in_i] [place] [facility] BP Systolic 2020-08-15 00:00:00 126 mm[Hg] [place] [facility] BP Diastolic 2020-08-15 00:00:00 72 mm[Hg] [place] [facility] BP Diastolic 2019-11-30 00:00:00 93 mm[Hg] [place] [facility] Height 2019-11-30 00:00:00 72 [in_i] [place] [facility] BMI (Body Mass 2019-11-30 00:00:00 26.3 kg/m2 [place] [facility] Index) [facility]reach [facility] BP Systolic 2019-11-30 00:00:00 125 mm[Hg] [place] [facility] Body Weight 2019-11-30 00:00:00 3097.6 [oz_av] [place] [facility] BP Diastolic 2019-11-02 00:00:00 78 mm[Hg] [place] [facility] Height 2019-11-02 00:00:00 72 [in_i] [place] [facility] BMI (Body Mass 2019-11-02 00:00:00 25.2 kg/m2 [place] [facility] Index) [facility] Outreach Program BP Systolic 2019-11-02 00:00:00 129 [facility]Hg[facility] Body Weight 2019-11-02 00:00:00 2976 [oz_av] [facility] BP Diastolic 2019-09-28 00:00:00 74 mm[Hg] [facility] Height 2019-09-28 00:00:00 72 [in_i] [facility] a [facility] BMI (Body Mass 2019-09-28 00:00:00 24.3 kg/m2 [place] [facility] Index) [facility] Outreach Program BP Systolic 2019-09-28 00:00:00 120 mm[Hg] [facility] Body Weight 2019-09-28 00:00:00 2870.4 [oz_av] [facility]reach [facility] Procedures Procedure Date / Time Performed Performing Clinician Sour e ELECTROCARDIOGRAM, 2021-06-09 00:00:00 Chika [facility] COMPLETE Health Outreach Program CHEST X-RAY 2021-04-28 00:00:00 Chika [facility] XR, ankle, 3 or more 2019-11-02 00:00:00 Shana sloan [facility] view [facility] Outreach Program Plan of Care [...] [place] Pending 00:00:00 plasma [code = [facility] magnesium, serum or Outreach Program plasma] [...] Diagnostic Test 2021-06-09 lipid panel, serum [place] [facility] Pending 00:00:00 [code = lipid panel, [facility] serum] Outreach Progra m Diagnostic Test 2021-06-09 amylase + lipase, [place] Pending 00:00:00 serum [code = amylase [facility] + lipase, serum] Outreach Pr ogram Encounters Start End Encounter Admission Attending Care Care Encounter Source Date/Time Date/Time Type Type Clinicians Facility Department ID 2022-05-25 2022-05-25 Outpatient KIAH VENTURA [id number] [place] 14:45:00 14:45:00 SOLANGE nunn 2021-06-09 2021-06-09 Tho Ngen_[facility] [place] - [id number] [place] 00:00:00 00:00:00 Chika Louie 0322 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 [address], [facility], [facility] [id number] [facility] , Ph. 2020-07-14 2020-07-14 Outpatient AMBREEN_FAR [facility] [id number] [place] 01:03:00 01:03:00 HANA 0426 [facility] 2020-06-09 2020-06-09 Outpatient AMBREEN_FAR [facility] [id number] [place] 01:01:00 01:01:00 NICOLÁS 0322 da [facility] [...] h Program 2020-02-25 2020-02-25 Outpatient AMBREEN_FAR [facility]OP [id number] [place] 01:03:00 01:03:00 HANKofi 1207 [facility] 2020-02-18 2020-02-18 Oswaldo AMBREEN_[facility] [facility] [place] - [id number] [place] 00:00:00 00:00:00 Matt Farr 1130 edouard Weir MD: [facility] Epi scop 1700 HOP - MEHOP [facility] [address] [facility] am , Ph. [phone] --[phone] 2020-02-06 Outpatient cain_jo [facility] [id number] [place] 02:32:00 02:32:00 1118 da [facility] 2020-01-19 2020-01-19 Outpatient AMBREEN_FAR [facility]OP [facility] [id number] [place] 01:03:00 01:03:00 HANA 1031 da [facility] 2020-01-18 2020-01-18 Outpatient AMBREEN_FAR ME[facility] [place] [id number] [place] 03:44:00 03:44:00 HANKofi 1030 da [facility] 2019-12-19 2019-12-19 Artem Conley AM[facility] [id number] [place] 00:00:00 00:00:00 NICOLÁS Soni 0930 da PSYD: 1700 [facility] Epi scop Fritz HOP - MEHOP [facility] [id number] h , Ph. Program [phone] --[phone] 2019-12-14 Outpatient AMBREEN_FAR [facility] [id number] [place] 11:02:00 11:02:00 HANA 0925 da [facility] 2019-12-13 2019-12-13 Artem Conley AMBREEN_FAR [facility] - [id number] [place] 00:00:00 00:00:00 NICOLÁS [place] 0924 da PSYD: 1700 [facility] Epi scop Fritz HOP - [place]HOP [facility] [address] h , Ph. Program ([phone]) 2019-11-30 2019-11-30 Latrice AMBREEN_[facility] [facility] [place] - [id number] [place] 00:00:00 00:00:00 Cruznita N[place]OLÁS [place] 0911 da Gerard [facility] Ep[facility] op DOUGH SHEETER: [address] [facility] [address] Progr am , Ph. 2019-11-02 2019-11-02 Latrice AMBREEN_[facility] [facility] - [id number] [place] 00:00:00 00:00:00 Cruztuckerkofi [place] 0814 da Gerard, [facility] Episc op DOUGH SHEETER: [address] [facility] [id number] Progr am , Ph. 2019-10-31 2019-10-31 Outpatient AMBREEN_FAR [facility]OP [facility]OP [id number] [place] 10:29:00 10:29:00 HANA 0812 [facility] 2019-10-09 2019-10-09 Outpatient AMBREEN_FAR [facility]OP [facility]OP [id number] [place] 01:45:00 01:45:00 HANA 0721 [facility] 2019-10-04 2019-10-04 Outpatient AMBREEN_FAR [facility]OP [id number] [place] 01:13:00 01:13:00 HANA 0716 da [facility] 2019-09-28 2019-09-28 Latrice AM[facility] [place] - [id number] [place] 00:00:00 00:00:00 Isabel [place] 0710 da Gerard, [facility] Episc op DOUGH SHEETER: [address] [facility] [address] Progr am , Ph. 2019-09-26 2019-09-26 Outpatient AMBREEN_FAR [facility]OP [id number] [place] 06:37:00 06:37:00 HANA 0708 da [facility] 2019-08-30 2019-08-30 Outpatient AMBREEN_[facility] [id number] [place] 03:40:00 03:40:00 NICOLÁS 0611 [facility] Program Results Test Description Test Time Test Comments Results Result Comments Source influenza virus A + B and SARS CoV 2 (COVID-19) and RSV RNA 2020-11-07 14:36:00 panel, NESS+probe, respiratory specimen Test Item Value Reference Range Interpretation Comme nts Sars Cov 2 (test code = Sars Cov 2) [facility] [Mass/volume] - Serum or [id number] 00:00:00 Test Item Value Reference Range Interpretation Comments Testosterone [Mass/volume] in 674 NG/dL [id number] Serum or Plasma (test code = 2986-8) Testosterone Free [Mass/volume] in 17.3 pg/mL 8.7-25.1 Serum or Plasma (test code = 2991-8) [facility]
[2022-05-23] MEDS ORDERED: ACETAMINOPHEN 325 MG TABLET ONE (20:32)
[2022-05-23] MEDS ORDERED: IBUPROFEN 400 MG TAB ONE (20:33)
--- NOTE | 2022-05-23 21:55 | ER ---
Nurse's Notes [facility] Name: Ham Chavez Age: 31 yrs Sex: Male : 1990 Arrival Date: 05/23/2022 Time: 19:31 Bed 18 Private MD: Diagnosis: Pain in right hand Presentation: 05/23 20:05 Chief complaint: Patient states: "I hit my hand on a door 2 weeks ago and they did an as6 xray and said they couldn't see anything because of the swelling. they said to come back in 2 weeks to see if they could see anything". Coronavirus screen: At this time, the client does not indicate any symptoms associated with coronavirus-19. Ebola Screen: No symptoms or risks identified at this time. Initial Sepsis Screen: Does the patient meet any 2 criteria? No. Patient's initial sepsis screen is negative. Does the patient have a suspected source of infection? No. Patient's initial sepsis screen is negative. Risk Assessment: Do you want to hurt yourself or someone else? Patient reports no desire to harm self or others. Onset of symptoms was May 09, 2022. 20:05 Method Of Arrival: Ambulatory as6 20:05 Acuity: TEE 4 as6 Triage Assessment: 20:09 General: Appears in no apparent distress. Behavior is calm, cooperative. Pain: as6 Complains of pain in right hand. Musculoskeletal: Swelling present in right hand. Historical: - Allergies: 20:08 No Known Allergies; as6 - PMHx: 20:08 Asthma; Bronchitis; as6 - PSHx: 20:08 None; as6 - Immunization history:: Client reports having NOT received the Covid vaccine. - Social history:: Smoking status: Patient denies any tobacco usage or history of. Vital Signs: 20:05 BP 121 / 85; Pulse 68; Resp 18 S; Temp 98.3(O); Pulse Ox 99% on R/A; Weight 84.37 kg as6 (R); Height 6 ft. 2 in. (187.96 cm) (R); Pain 7/10; 20:05 Body Mass Index 23.88 (84.37 kg, 187.96 cm) as6 ED Course: 19:31 Patient arrived in ED. ja2 19:41 Yoni Restrepo PA is PHCP. cp 19:41 Harrison Mackenzie MD is Attending Physician. cp 20:08 Triage completed. as6 20:08 Arm band placed on. as6 21:18 Kalie Friedman, YOSSI is Primary Nurse. ke1 22:02 Orthoglass splint: Ulnar gutter/Boxer splint applied on right forearm. ds4 Administered Medications: 20:32 Drug: Ibuprofen 800 mg Route: PO; as6 20:32 Drug: Tylenol 650 mg Route: PO; as6 Outcome: 21:54 Discharge ordered by MD. cp 22:30 Patient left the ED. vc1 Signatures: Primitivo Blue ds4 Yoni Restrepo PA PA cp Lucia Gomez Ashby, RN RN as6 Luh Hansen RN RN vc1 Kalie Friedman RN RN ke1
--- NOTE | 2022-05-23 21:55 | EDPHYS ---
Physician Documentation [facility] Name: Ham Chavez Age: 31 yrs Sex: Male : 1990 Arrival Date: 05/23/2022 Time: 19:31 Bed 18 Private MD: ED Physician Harrison Mackenzie HPI: 05/23 20:15 This 31 yrs old Male presents to ER via Ambulatory with complaints of Hand Injury. cp 20:15 The patient or guardian reports pain, swelling, tenderness. The complaints affect the cp right fourth and fifth metacarpals. Context: resulted from striking door. Onset: The symptoms/episode began/occurred 2 week(s) ago. Modifying factors: the symptoms are aggravated by movement. Associated signs and symptoms: The patient has no apparent associated signs or symptoms. Historical: - Allergies: 20:08 No Known Allergies; as6 - PMHx: 20:08 Asthma; Bronchitis; as6 - PSHx: 20:08 None; as6 - Immunization history:: Client reports having NOT received the Covid vaccine. - Social history:: Smoking status: Patient denies any tobacco usage or history of. ROS: 20:20 Constitutional: Negative for body aches, chills, fever, poor PO intake. cp 20:20 Neck: Negative for pain with movement, pain at rest. cp 20:20 Cardiovascular: Negative for chest pain. 20:20 Respiratory: Negative for cough, shortness of breath, wheezing. 20:20 Abdomen/GI: Negative for abdominal pain, nausea, vomiting, and diarrhea. 20:20 Back: Negative for pain at rest, pain with movement. 20:20 MS/extremity: Positive for pain, swelling, tenderness, of the right hand, Negative for decreased range of motion, deformity, paresthesias. 20:20 All other systems are negative. Exam: 20:25 Constitutional: The patient appears in no acute distress, alert, awake, non-toxic, well cp developed, well nourished. 20:25 Musculoskeletal/extremity: Extremities: noted in the right fourth and fifth cp metacarpals: pain, swelling, tenderness, There is no evidence of decreased ROM, deformity, ROM: limited active range of motion due to pain, in the right hand, Perfusion: the extremity is normally perfused throughout, the right hand Sensation intact. 20:25 Skin: cellulitis, is not appreciated, no rash present. Vital Signs: 20:05 BP 121 / 85; Pulse 68; Resp 18 S; Temp 98.3(O); Pulse Ox 99% on R/A; Weight 84.37 kg as6 (R); Height 6 ft. 2 in. (187.96 cm) (R); Pain 7/10; 20:05 Body Mass Index 23.88 (84.37 kg, 187.96 cm) as6 Procedures: 22:15 Splinting: Splint applied to right hand using Orthoglass splint, ulna gutter type. cp applied by nurse. Examined by me, post splint application: neurovascular intact, Patient tolerated well. MDM: 20:09 Patient medically screened. cp 20:35 Differential diagnosis: dislocation, closed fracture, contusion, ellulitis. cp 21:54 Data reviewed: vital signs, nurses notes, radiologic studies, plain films. cp 21:54 I considered the following discharge prescriptions or medication management in the cp emergency department Medications were administered in the Emergency Department. See MAR. Counseling: I had a detailed discussion with the patient and/or guardian regarding: the historical points, exam findings, and any diagnostic results supporting the discharge/admit diagnosis, radiology results, to return to the emergency department if symptoms worsen or persist or if there are any questions or concerns that arise at home. 22:00 Independent interpretation of the following test(s) in the Emergency Department X-Ray: cp My interpretation is images of right hand negative for fracture. 05/23 20:09 Order name: XRAY Hand RIGHT 3 View cp 05/23 21:45 Order name: Splint - Ulnar Gutter; Complete Time: 22:02 cp 05/23 22:01 Order name: RAD EDMS Administered Medications: 20:32 Drug: Ibuprofen 800 mg Route: PO; as6 20:32 Drug: Tylenol 650 mg Route: PO; as6 Disposition: 05/24 02:33 Co-signature as Attending Physician, Harrison Mackenzie MD I reviewed the patient's care sp4 provided by the Advanced Practice Provider and agree with the diagnosis and treatment plan. Disposition Summary: 05/23/22 21:54 Discharge Ordered Location: Home cp Problem: new cp Symptoms: have improved cp Condition: Stable cp Diagnosis - Pain in right hand cp Followup: cp - With: Private Physician - When: 2 - 3 days - Reason: Worsening of condition Discharge Instructions: - Discharge Summary Sheet cp - Hand Pain cp Forms: - Medication Reconciliation Form cp - Thank You Letter cp - Antibiotic Education cp - Prescription Opioid Use cp - Work release form ke1 Prescriptions: - Ibuprofen 800 mg Oral Tablet - take 1 tablet by ORAL route every 8 hours As needed take with food; 30 tablet; cp Refills: 0, Product Selection Permitted Signatures: Dispatcher [employer] EDYoni Reynolds PA PA cp Slawson, Ashby, RN RN as6 Harrison Mackenzie MD MD sp4
--- NOTE | 2022-05-23 22:01 | RAD REPORT ---
EXAM DESCRIPTION: RAD - Hand Right 3 View - 05/23/2022 9:16 pm CLINICAL HISTORY: Right hand pain status post injury FINDINGS: No fracture or dislocation is seen.
== END 2022-05-23 22:30 | disposition home or self-care (01) ==
LOC: ER 19:28
DX: M79.641 Pain in right hand (principal)
CPT/HCPCS: 99283